=== PATIENT | female | born 1995 | race Native Hawaiian/Other Pacific Islander ===

== ENCOUNTER 2020-08-25 18:38 | Emergency (ER) | payer OTHER ==
[~2020-08-25] VITALS: Ht 162.6 cm; Wt 96.6 kg
[2020-08-25 21:15] VITALS: BP 122/82; TEMP 98
== END 2020-08-25 21:15 | disposition home or self-care (01) ==
LOC: ED 18:46
DX: J06.9 Acute upper respiratory infection, unspecified (principal); Z20.828 Contact with and (suspected) exposure to other viral communicable diseases; F17.210 Nicotine dependence, cigarettes, uncomplicated
CPT/HCPCS: 87635; 99282; U0003

== ENCOUNTER 2022-08-25 17:40 | Emergency (ER) | payer OTHER ==
[~2022-08-25] VITALS: Ht 162.6 cm; Wt 96.6 kg
[2022-08-26 00:06] VITALS: BP 112/60; TEMP 98.2
== END 2022-08-26 00:06 | disposition short-term general hospital (02) ==
LOC: ED 17:40
PROC: 2W38X1Z Immobilization of Right Upper Extremity using Splint (ICD-10-PCS; principal; 2022-08-25)
DX: S42.344A Nondisplaced spiral fracture of shaft of humerus, right arm, initial encounter for closed fracture (principal); V28.49XA Other motorcycle driver injured in noncollision transport accident in traffic accident, initial encounter; Y92.89 Other specified places as the place of occurrence of the external cause
CPT/HCPCS: 96360; 96361; 96374; 96375; 96376; 99285; J2175; J2270; J2405; J2550